=== PATIENT | female | born 1995 | race Caucasian/White ===

== ENCOUNTER → 2018-03-31 | Outpatient (CLI) | payer SELFPAY ==
--- NOTE | 2018-03-31 20:11 | REP ---
LUMBAR SPINE COMPLETE: 03/31/2018. Clinical history: Low back pain. Technique: Five views provided. Findings: No prior study. AP view shows pedicles, spinous and transverse processes intact. Lower thoracic levels with visualized ribs and the sacral ala, foramina, SI joints unremarkable. Oblique images show no spondylolysis or spondylolisthesis. Pedicles intact. Lateral view shows normal lordosis. Disc space slightly narrowed L5-S1 but no spondylolysis or spondylolisthesis. There is some facet arthropathy L5-S1. Impression: 1. Minor degenerative disc changes and some sclerotic facets at L5-S1. Slight narrowing of the disc space. No other significant finding. Electronically Signed by Andrei Scott MD 03/31/2018 08:21 P
== END ==
LOC: M WUC 19:20
PROVIDERS: ATTEND Physician Assistant
DX: M51.36 Other intervertebral disc degeneration, lumbar region (principal); M54.5 Low back pain

== ENCOUNTER 2024-04-24 13:27 | Emergency (ER) | payer BC, OTHER ==
[~2024-04-24] VITALS: Ht 167.6 cm; Wt 95.4 kg
[2024-04-24 13:29] VITALS: TEMP 97.2
[2024-04-24 18:46] VITALS: BP 134/86; O2SAT 97
== END 2024-04-24 18:53 | disposition home or self-care (01) ==
LOC: M ED 13:27
DX: T59.811A Toxic effect of smoke, accidental (unintentional), initial encounter (principal); F32.A Depression, unspecified; F41.9 Anxiety disorder, unspecified; F17.200 Nicotine dependence, unspecified, uncomplicated; Y92.009 Unspecified place in unspecified non-institutional (private) residence as the place of occurrence of the external cause; Y93.89 Activity, other specified; Y99.9 Unspecified external cause status

== ENCOUNTER 2024-07-03 10:07 | Emergency (ER) | payer OTHER ==
[~2024-07-03] VITALS: Ht 170.2 cm; Wt 94.1 kg
[2024-07-03 10:36] LABS: BASO # 0.1 10^3/uL (0.0-0.2); BASO % 0.6 % (0.0-1.0); EOS # 0.1 10^3/uL (0.0-0.5); EOS % 0.9 % (0.0-3.0); HEMATOCRIT 52.1 % (36.0-47.0); HEMOGLOBIN 17.4 g/dl (12.0-15.5); LYMPH # 2.4 10^3/uL (1.5-5.0); LYMPH % 26.3 % (24.0-44.0); MEAN CORPUSCULAR HEMOGLOBIN 30.2 pg (27.0-33.0); MEAN CORPUSCULAR HGB CONC 33.4 g/dl (32.0-36.5); MEAN CORPUSCULAR VOLUME 90.5 fl (80.0-96.0); MONO # 0.6 10^3/uL (0.0-0.8); MONO % 7.1 % (2.0-8.0); NEUTROPHILS # 5.9 10^3/uL (1.5-8.5); NEUTROPHILS % 64.8 % (36.0-66.0); PLATELET COUNT, AUTOMATED 253 10^3/uL (150-450); RED BLOOD COUNT 5.76 10^6/uL (4.00-5.40)
[2024-07-03 10:59] LABS: LIPASE 27 U/L (12-53)
[2024-07-03 11:01] LABS: ALBUMIN 4.2 G/DL (3.2-5.2); ALKALINE PHOSPHATASE 45 U/L (35-104); ALT/SGPT 18 U/L (7.0-40); AST/SGOT 17 U/L (<34); BILIRUBIN,DIRECT 0.1 MG/DL (<0.4); BILIRUBIN,TOTAL 0.4 MG/DL (0.3-1.2); BLOOD UREA NITROGEN 8 MG/DL (9-23); CALCIUM LEVEL 9.4 MG/DL (8.5-10.1); CARBON DIOXIDE LEVEL 26 MMOL/L (20-31); CHLORIDE LEVEL 107 MMOL/L (98-107); CREATININE FOR GFR 0.57 MG/DL (0.55-1.30); GLOMERULAR FILTRATION RATE > 90.0 (>60); GLUCOSE, FASTING 90 MG/DL (60-100); POTASSIUM SERUM 4.3 MMOL/L (3.5-5.1); SODIUM LEVEL 140 MMOL/L (136-145); TOTAL PROTEIN 7.3 G/DL (5.7-8.2)
[2024-07-03 11:05] LABS: HCG, SERUM QUALITATIVE NEGATIVE (NEGATIVE)
[2024-07-03] MEDS ORDERED: ISOVUE-370 76% 100ML VIAL As Ordered ONE (11:58)
[2024-07-03] MEDS: NS (Normal Saline) 0.9% 1,000 ML IV ONE (12:20)
[2024-07-03] MEDS ORDERED: NAPR-837 PO (13:20)
[2024-07-03 13:31] VITALS: BP 131/80; TEMP 96.5; O2SAT 97
== END 2024-07-03 13:35 | disposition home or self-care (01) ==
LOC: M ED 10:07
DX: N83.201 Unspecified ovarian cyst, right side (principal); F41.9 Anxiety disorder, unspecified; Z87.42 Personal history of other diseases of the female genital tract; Z79.1 Long term (current) use of non-steroidal anti-inflammatories (NSAID)
CPT/HCPCS: 74177; 76830; 76856; 80048; 80076; 83690; 84703; 85025; 93976; 96360; 99284; Q9967